=== PATIENT | male | born 1995 | race Caucasian/White ===

== ENCOUNTER → 2017-12-26 12:38 | Outpatient (CLI) | payer OTHER, SELFPAY ==
[2017-12-26 14:26] LABS: Basophils % 0.4 % (0.1-2.0); Eosinophils # 0.1 K/mm3 (0.0-0.4); Eosinophils % 1.8 % (0.1-12.0); Hematocrit 42.3 % (42.0-52.0); Hemoglobin 14.4 g/dL (14.1-18.0); Lymphocytes # 1.4 K/mm3 (0.7-4.5); Lymphocytes % 27.3 K/mm3 (10-50); Mean Corpuscular HGB Conc 34.2 g/dL (31.8-35.4); Mean Corpuscular Volume 93.8 fl (80-94); Mean Platelet Volume 7.8 fl (7.4-10.4); Monocytes # 0.3 K/mm3 (0.1-1.0); Monocytes % 5.1 % (1.7-9.3); Neutrophils # 3.4 K/mm3 (1.8-7.8); Neutrophils % 65.4 % (37.0-80.0); Platelet Count 178 K/mm3 (142-424); Red Blood Count 4.51 M/mm3 (4.60-6.20); Red Cell Distribution Width 15.2 % (11.5-17.5); White Blood Count 5.3 K/mm3 (4.8-10.8)
[2017-12-26 15:15] LABS: Alanine Aminotransferase 28 U/L (12-78); Albumin Level 4.7 gm/dL (3.4-5.0); Alkaline Phosphatase 83 U/L (46-116); Anion Gap 15.4 mEq/L (5-15); Aspartate Amino Transferase 14 U/L (15-37); Bilirubin,Direct 0.2 mg/dL (0.0-0.2); Bilirubin,Indirect 0.9 mg/dL (0.0-0.9); Bilirubin,Total 1.1 mg/dL (0.2-1.0); Blood Urea Nitrogen 5 mg/dL (7-18); Calcium 9.6 mg/dL (8.5-10.1); Carbon Dioxide 27 mmol/L (21.0-32.0); Chloride 103 mmol/L (98-107); Chol/HDL Ratio 2.6 (1-3.5); Cholesterol 100 mg/dL (140-200); Creatinine,Serum 0.78 mg/dL (0.70-1.30); Estimated Glomerular Filt Rate 122 ml/min (>60); Free Thyroxine Index 3.7 ug/dL (5.93-13.13); GFR (African American) 148 ML/MIN (>60); Glucose 90 mg/dL (74-106); HDL Cholesterol 38 mg/dL (27-67); LDL Cholesterol 47 mg/dL (0-130); Magnesium 1.9 mg/dL (1.4-2.2); Potassium 4.4 mmoL/L (3.5-5.1); Sodium 141 mmol/L (136-145); T4 (Thyroxine) 10.6 ug/dl (4.7-13.3); Thyroid Stimulating Hormone 1.45 uIU/ml (0.358-3.740); Total Protein,Serum 7.8 gm/dL (6.4-8.2); Triglycerides 77 mg/dL (30-200); Triiodothryronine (T3) Uptake 35 % (31-39); VLDL Cholesterol 15 mg/dL (0-40)
== END ==
PROVIDERS: PCP Family Medicine; Visit Provider Physician Assistant
DX: R07.9 Chest pain, unspecified (principal); R00.2 Palpitations; I47.1 Supraventricular tachycardia; F17.200 Nicotine dependence, unspecified, uncomplicated; I10 Essential (primary) hypertension
CPT/HCPCS: 36415; 80048; 80061; 80076; 83735; 84436; 84443; 84479; 85025

== ENCOUNTER → 2019-11-13 12:18 | Outpatient (CLI) | payer MEDICAID, SELFPAY | PROVIDERS: PCP Family Medicine; Visit Provider Internal Medicine Cardiovascular Disease | DX: R55 Syncope and collapse (principal); R00.2 Palpitations; Z86.79 Personal history of other diseases of the circulatory system | CPT/HCPCS: 93270 ==

== ENCOUNTER → 2019-11-19 13:27 | Outpatient (CLI) | payer MEDICAID, SELFPAY ==
--- NOTE | 2019-11-19 13:28 | CA_ITS ---
APPROVED REPORT EXAM: Comprehensive 2D, Doppler, and color-flow Echocardiogram [employer] Adviser: Adela Dawn CRT Ht: 5 ft 10 in Wt: 195lbs BSA: 2.07 BP: 127/75 mmHg Indications: + ASD/PFO //14, MVP, PALP, NEAR SYNCOPE, SVT Echo Enhancing Agent Indication: Rule out Shunt Agent(s) / Amount(s) Used: Agitated Saline 15 cc Comments: B/S X 3. 2D Dimensions LVOT 1.97 cm (M/F) 1.5-2.5 M-Mode Dimensions RVDd 2.76 cm (0.9-2.6) LVDd 4.77 cm (3.5-5.7) LVDs 3.14 cm (3.5-5.7) IVSd 1.31 cm (0.6-1.1) PWd 0.96 cm (0.6-1.1) EF (Teich) 63.10% FS 34.20% EDV (Teich) 106.00 mL ESV (Teich) 39.10 mL LV Diastology E/A Ratio 1.31 Mitral Valve MV A Velocity 46.00 (40-130 cm/s) Left Ventricle Left atrium is normal size, left ventricle is normal size, there is no concentric left ventricular hypertrophy, visually estimated ejection fraction 55% with no regional wall motion abnormality, diastolic parameters are within normal range. Right Ventricle Right atrium and right ventricle are normal size and contractility. Atria Intra-atrial septum is intact, there is no flow across the interatrial septum, agitated saline contrast study fails to identify intracardiac shunt. Aortic Valve Aortic valve is grossly normal, there is no aortic stenosis or aortic insufficiency. Mitral Valve Mitral valve is grossly normal, there is no obvious mitral valve prolapse, there is trace mitral regurgitation. Tricuspid Valve Tricuspid valve is grossly normal, there is trace tricuspid regurgitation. Pulmonic Valve Pulmonic valve is poorly visualized. Great Vessels Aortic root is normal size. Pericardium No significant pericardial effusion noted. Conclusion 1. Normal left ventricular size, preserved left ventricular systolic function, visually estimated ejection fraction 55% with no regional wall motion abnormality, diastolic parameters are within normal range. 2. Interatrial septum is intact, agitated saline contrast study fails to identify intracardiac shunt. 3. This study did not confirm the findings of mitral valve prolapse or intracardiac shunt. Electronically signed by : Del Rivas, 11/20/2019 11:18:01
== END ==
PROVIDERS: PCP Family Medicine; Visit Provider Internal Medicine Cardiovascular Disease
DX: R00.2 Palpitations (principal); R55 Syncope and collapse; Z86.79 Personal history of other diseases of the circulatory system
CPT/HCPCS: 93306

== ENCOUNTER 2020-12-24 07:10 | Emergency (ER) | payer BC, OTHER, SELFPAY ==
[2020-12-24 07:11] VITALS: BP 152/81; PULSE 96; RESP 16; TEMP 37.4; O2SAT 98; BMI 31.1
[2020-12-24 07:25] VITALS: BMI 31.1
[2020-12-24 07:32] LABS: Coronavirus 19, PCR Not Detected (NotDetected); Influenza A, PCR Not Detected (NotDetected); Influenza B, PCR Not Detected (NotDetected)
[2020-12-24 07:41] LABS: Strep Scrn Group A (Rapid) Positive (Negative)
[2020-12-24 07:59] LABS: Basophils % 0.3 % (0.1-2.0); Eosinophils # 0.1 K/mm3 (0.0-0.4); Eosinophils % 2.4 % (0.1-12.0); Hematocrit 42.3 % (42.0-52.0); Hemoglobin 14.6 g/dL (14.1-18.0); Lymphocytes # 0.8 K/mm3 (0.7-4.5); Lymphocytes % 15.5 % (10-50); Mean Corpuscular HGB Conc 34.5 g/dL (31.8-35.4); Mean Corpuscular Hemoglobin 32.4 pg (27.0-31.2); Mean Platelet Volume 8.4 fl (7.4-10.4); Monocytes # 0.5 K/mm3 (0.1-1.0); Monocytes % 9.3 % (1.7-9.3); Neutrophils # 3.9 K/mm3 (1.8-7.8); Neutrophils % 72.4 % (37.0-80.0); Platelet Count 140 K/mm3 (142-424); Red Cell Distribution Width 14.9 % (11.5-17.5); White Blood Count 5.4 K/mm3 (4.8-10.8)
[2020-12-24 08:05] LABS: Alanine Aminotransferase 29 U/L (12-78); Albumin Level 4.4 g/dl (3.5-5.0); Albumin/Globulin Ratio 1.5 (1.1-1.8); Alkaline Phosphatase 61 U/L (38-126); Anion Gap 15.5 mEq/L (5-15); Aspartate Amino Transferase 23 U/L (17-59); Blood Urea Nitrogen 8 mg/dl (9-20); Calcium 9.3 mg/dl (8.4-10.2); Carbon Dioxide 26 mmol/L (22.0-30.0); Chloride 101 mmol/L (98-107); Creatinine Clearance Estimated 182 mL/min (50-200); Estimated Glomerular Filt Rate 116 ml/min (>60); GFR (African American) 140 ML/MIN (>60); Glucose 102 mg/dl (74-100); Potassium 4.5 mmoL/L (3.5-5.1); Sodium 138 mmol/L (136-145); Total Protein,Serum 7.4 g/dl (6.3-8.2)
--- NOTE | 2020-12-24 08:07 | HMH.EDGENADL ---
ED Disposition Clinical Impression: Strep pharyngitis Disposition: Home, Self-Care Condition on Discharge: Good Instructions: DI for Strep Throat Additional Instructions: Tylenol or ibuprofen for pain or fever. Rest and drink plenty of fluids. Amoxicillin as prescribed. Prescriptions: Amoxicillin [Amoxicillin 500mg Cap] 500 mg PO TID #30 cap Transmission Status: Pending to [facility] Referrals: Provider,Referral, MD [Primary Care Provider] - Forms: Work/School Release - Critical Care Critical Care Time: No Attestation: On 12/24/20, the high probability of a clinically significant, sudden or life threatening deterioration of the following system(s) required my full and direct attention, intervention and personal management. The time I documented below is in addition to time spent performing reported procedures but includes the following listed in this critical care notation. Medical Decision Making - Tyshawn Inquiry Pt receiving controlled substance: No Vital Signs: 12/24/20 07:11 Temperature 99.3 F Temperature Source Oral Pulse Rate [Radial] 96 H Respiratory Rate 16 Blood Pressure [Right Arm] 152/81 H Blood Pressure Mean [Right Arm] 104 Blood Pressure Source [Right Arm] Manual Cuff/ Palpation Blood Pressure Position [Right Arm] Sitting 02 Sat by Pulse Oximetry 98 Oxygen Delivery Method Room Air - Lab Data Lab Results 12/24/20 07:20: Group A Strep Rapid Positive A 12/24/20 07:20: SARS-CoV-2 (PCR) Not detected, Influenza A Untype (PCR) Not detected, Influenza Type B (PCR) Not detected 12/24/20 07:50: WBC 5.4, RBC 4.50 L, Hgb 14.6, Hct 42.3, MCV 94.0, MCH 32.4 H, MCHC 34.5, RDW 14.9, Plt Count 140 L, MPV 8.4, Neut % (Auto) 72.4, Lymph % (Auto) 15.5, [place] % (Auto) 9.3, Eos % (Auto) 2.4, Baso % (Auto) 0.3, Neut # (Auto) 3.9, Lymph # (Auto) 0.8, [place] # (Auto) 0.5, Eos # (Auto) 0.1, Baso # (Auto) 0.0 12/24/20 07:50: Sodium 138, Potassium 4.5, Chloride 101, Carbon Dioxide 26, Anion Gap 15.5 H, BUN 8 L, Creatinine 0.80, Estimated Creat Clear 182, Estimated GFR 116, Est GFR ( Amer) 140, Glucose 102 H, Calcium 9.3, Total Bilirubin 1.0, AST 23, ALT 29, Alkaline Phosphatase 61, Total Protein 7.4, Albumin 4.4, Globulin 3.0, Albumin/Globulin Ratio 1.5 Result diagrams: 12/24/20 07:50 12/24/20 07:50 Orders (Tests/Meds): ED MEDICATIONS Generic Name Dose Route Start Last Admin Trade Name Freq PRN Reason Stop Dose Admin Sodium Chloride 1,000 mls @ 999 mls/hr 12/24/20 07:45 12/24/20 07:45 Sod Chlor 0.9% 1000ml Bag IV 12/24/20 08:45 999 mls/hr .Q1H1M JULIO C Administration Ketorolac Tromethamine 30 mg 12/24/20 08:11 Ketorolac 30mg/Ml Vial IV 12/24/20 08:12 ONCE ONE Discontinued Medications Generic Name Dose Route Start Last Admin Trade Name Freq PRN Reason Stop Dose Admin Methylprednisolone Sodium Succinate 125 mg 12/24/20 07:44 12/24/20 07:45 Methylprednisolone Sod Succ 125mg Vial IV 12/24/20 07:45 125 mg ONCE ONE Administration ORDERS Category Date Time Status C-Reactive Protein Stat Lab 12/24/20 07:50 Results Complete Blood Count Auto Diff Stat Lab 12/24/20 07:50 Results Comprehensive Metabolic Panel Stat Lab 12/24/20 07:50 Results ESR [Erythrocyte Sedimentation Rate] Stat Lab 12/24/20 07:50 Results General Adult HPI - General Chief complaint: Headache Stated complaint: sore throat, headache Time Seen by Provider: 12/24/20 08:08 Mode of Arrival: Ambulatory Limitations: No Limitations Description of Symptoms (Recalled from ER Triage Doc. by RN): to ed per pvt car states woke up this am with swollen lymph nodes in neck with pain on my way to work I almost passed out from the pain and c/o headache. denies fever, cough, sob, runny nose. - History of Present Illness HPI narrative: Woke up this morning with headache and swollen lymph nodes in his neck. No cough or runny nose. - Related Data Home Medications Medic
[2020-12-24 08:10] LABS: C-Reactive Protein 5.2 mg/L (0-4)
[2020-12-24 08:19] LABS: Erythrocyte Sedimentation Rate 16 mm/hr (0-15)
[2020-12-24 08:46] VITALS: BP 145/78; PULSE 90; RESP 16; TEMP 37.2; O2SAT 98
== END 2020-12-24 08:48 | disposition home or self-care (01) ==
PROVIDERS: Emergency Medicine; Emergency Provider Emergency Medicine
DX: J02.0 Streptococcal pharyngitis (principal); Z20.822 Contact with and (suspected) exposure to COVID-19; I47.1 Supraventricular tachycardia
CPT/HCPCS: 80053; 85025; 85651; 86140; 87430; 96365; 96375; 99283; U0003

== ENCOUNTER 2020-12-26 20:26 | Emergency (ER) | payer BC, OTHER, SELFPAY ==
[2020-12-26 20:32] VITALS: PULSE 106; RESP 16; TEMP 37.1; O2SAT 96; BMI 31.1
--- NOTE | 2020-12-26 20:40 | HMH.EDUTC ---
[facility] [place] Disposition Clinical Impression: Strep pharyngitis, Fever Disposition: Home, Self-Care Condition on Discharge: Good Instructions: DI for Strep Throat Additional Instructions: COVID19 test pending. Tylenol and Motrin as needed. Plenty of fluids. Prescriptions: Cefdinir [Omnicef 300mg Capsule] 300 mg PO BID #20 cap Transmission Status: Pending to [facility] Referrals: Provider,Referral, [Primary Care Provider] - Forms: Work/School Release Time of Disposition: 20:49 Medical Decision Making - Tyshawn Inquiry Pt receiving controlled substance: No Vital Signs: 12/26/20 20:32 Temperature 98.8 F Temperature Source Oral Pulse Rate [Left] 106 H Respiratory Rate 16 02 Sat by Pulse Oximetry 96 - Lab Data Lab results reviewed: Yes: I reviewed the patient's lab results. Orders (Tests/Meds): ORDERS Category Date Time Status Covid-19 Nasal PCR ([facility]) Routine Lab 12/26/20 20:39 Ordered [facility] HPI - General Stated complaint: covid test Time Seen by Provider: 12/26/20 20:40 Mode of Arrival: Ambulatory Source of Information: Patient Limitations: No Limitations Description of Symptoms (Recalled from Triage Doc. by RN): pt c/o [place], fever and swollen lymph nodes. HEENT Symptoms (Recalled from RN notes): Yes ([place] and swollen lymph nodes) Resp Symptoms (Recalled from RN notes): No Skin Symptoms (Recalled from RN notes): No MS Symptoms (Recalled from RN notes): No Functional Status (Recalled from RN notes): fever - History of Present Illness Provider Complaint: Patient diagnosed with strep 2 days ago. Taking Amoxil. Still running fevers up to 103, chills, body aches, sore throat and swollen glands. No vomiting or diarrhea. Onset (ago): day(s) (2) Relieving factors: none Exacerbating factors: none Associated symptoms: fever/chills, malaise Treatments prior to arrival: NSAID - Related Data Home Medications Medication Instructions Recorded Confirmed aspirin 81 mg tablet,delayed 81 mg PO DAILY 05/11/20 12/24/20 release Propranolol HCl [Inderal 20mg See Rx Instructions .ROUTE .COMPLEX 12/24/20 12/24/20 tablet] Previous Rx's Medication Instructions Recorded Amoxicillin [Amoxicillin 500mg 500 mg PO TID #30 cap 12/24/20 Cap] Cefdinir [Omnicef 300mg Capsule] 300 mg PO BID #20 cap 12/26/20 Allergies Allergy/AdvReac Type Severity Reaction Status Date / Time No Known Allergies Allergy Verified 09/02/20 13:03 - Worker's Comp Is this a Worker's Comp case?: No [facility] History - Hepatitis A Screen Drug use history?: No High risk sexual behaviors?: No History of sexually transmitted infection?: No Currently employed?: No Childcare worker?: No Do you have indoor plumbing?: Yes Do you have electricity?: Yes Attestation statement:: This patient has been screened for Hepatitis A risk factors. I have reviewed the patient's past medical history: Yes Medical History: Reports:: Supraventricular Tachycardia Denies:: Cancer, Diabetes Mellitus Type 1, Diabetes Mellitus Type 2, MRSA Laterality Cases: Bilateral: Myringotomy (Ear Tubes), Tonsillectomy Other Surgeries: Yes: Plastic Surgery (left ear ) Amputation: No Fractures: No - Social History Smoking Status: Never smoker Tobacco Type: smokeless tobacco # Packs/Day (cigarettes): 0 Alcohol Intake: never Alcohol Intake Frequency:: other Occupational Status: employed Housing: house Family Hx:: Coronary Artery Disease ROS Obtained: Yes All systems reviewed & no additional complaints - Constitutional Constitutional: Reports body ache, Reports chills, Reports fever(s), Reports headache(s), Reports malaise - ENT Ears, Nose, Mouth, and Throat: Reports sore throat Physical Exam - General General appearance: alert, in no apparent distress - Head Head exam: atraumatic, normocephalic - Eye Eye exam: Present: PERRL - ENT ENT exam: Present: TM's normal bilaterally - Expanded ENT Exam Throat exa
[2020-12-26 20:47] LABS: UTC Strep Screen (Rapid) Negative (Negative)
[2020-12-26 20:48] VITALS: BP 152/84; PULSE 101; RESP 18; TEMP 37.1
--- NOTE | 2020-12-27 14:20 | PC.NURSE ---
NOTIFIED PT OF POSITIVE COVID RESULTS
== END 2020-12-26 20:53 | disposition home or self-care (01) ==
PROVIDERS: Emergency Provider Physician Assistant
DX: J02.0 Streptococcal pharyngitis (principal); U07.1 COVID-19; I47.1 Supraventricular tachycardia
CPT/HCPCS: 87880; 99203; C9803; G0463; U0003; U0005

== ENCOUNTER → 2021-05-16 11:01 | Outpatient (CLI) | payer OTHER, SELFPAY ==
[2021-05-17 06:38] LABS: Covid-19 Nasal PCR Sendout Lex POSITIVE
== END ==
PROVIDERS: Visit Provider Nurse Practitioner
DX: U07.1 COVID-19 (principal)
CPT/HCPCS: C9803; U0004; U0005

== ENCOUNTER 2021-10-07 11:30 | Emergency (ER) | payer OTHER, SELFPAY ==
[2021-10-07 12:05] VITALS: BP 147/92; PULSE 70; RESP 18; TEMP 36.9; O2SAT 100; BMI 31.0
--- NOTE | 2021-10-07 12:19 | HMH.EDUTC ---
[facility] [place] Clinical Impression: Dental abscess Disposition: Home, Self-Care Condition on Discharge: Good Instructions: Tooth Abscess, Ibuprofen, Amoxicillin and Clavulanic Acid Additional Instructions: Take medication as prescribed Follow up with your Family Doctor if no improvement or any worsening of symptoms Use dental balls as instructed in the [facility] Make sure to ralph and make appointment with Dentist Return if needed Straight to ER if any life threatening symptoms Prescriptions: Amoxicillin/Potassium Clav [Amox-Clav 875-125 mg Tablet] 1 tab PO BID #20 tab Transmission Status: Pending to [facility] Ibuprofen [Ibuprofen 800mg Tablet] 800 mg PO TIDP PRN #20 tab PRN Reason: Moderate Pain Transmission Status: Pending to [facility] Referrals: Petar Sun APRN [Primary Care Provider] - As needed Forms: Work/School Release Time of Disposition: 12:27 Medical Decision Making - Tyshawn Inquiry Pt receiving controlled substance: No Tyshawn was queried for this patient: No Vital Signs: 10/07/21 12:05 Temperature 98.5 F Temperature Source Oral Pulse Rate [Right Brachial] 70 Respiratory Rate 18 Blood Pressure [Right Arm] 147/92 H Blood Pressure Mean [Right Arm] 110 Blood Pressure Source [Right Arm] Automatic Cuff Blood Pressure Position [Right Arm] Sitting 02 Sat by Pulse Oximetry 100 Oxygen Delivery Method Room Air Orders (Tests/Meds): ED MEDICATIONS Discontinued Medications Generic Name Dose Route Start Last Admin Trade Name Freq PRN Reason Stop Dose Admin Benzocaine/Butamben/Tetracaine HCl 1 gm 10/07/21 12:17 10/07/21 12:17 Tetracaine/Benzocaine/Butamben 56 Gm [place] TP 10/07/21 12:18 1 gm ONCE ONE Administration Benzocaine/Butamben/Tetracaine HCl 1 gm 10/07/21 12:22 10/07/21 12:27 Tetracaine/Benzocaine/Butamben 56 Gm [place] TP 10/07/21 12:23 Not Given ONCE ONE Lidocaine HCl 15 ml 10/07/21 12:17 10/07/21 12:18 Lidocaine 2% Viscous Giuliana 15ml Udc PO 10/07/21 12:18 15 ml ONCE ONE Administration Lidocaine HCl 15 ml 10/07/21 12:22 10/07/21 12:27 Lidocaine 2% Viscous Giuliana 15ml Udc PO 10/07/21 12:23 Not Given ONCE ONE [facility] [place]PI - General Stated complaint: Mouth pain Time Seen by Provider: 10/07/21 12:20 Mode of Arrival: Ambulatory Source of Information: Patient Limitations: No Limitations Description of Symptoms (Recalled from Triage Doc. by RN): PATIENT C/O TOOTHACHE TO RIGHT SIDE OF MOUTH. HE STATES HIS FACE FEELS SWOLLEN HEENT Symptoms (Recalled from RN notes): Yes Resp Symptoms (Recalled from RN notes): No Skin Symptoms (Recalled from RN notes): No MS Symptoms (Recalled from RN notes): No Functional Status (Recalled from RN notes): WNL - History of Present Illness Provider Complaint: Patient statse that he has several broken teeth in the front of his mouth and he has been having pain and swelling in his gums States that feels like he may have an infection in his teeth so he came in to get checked - Related Data Previous Rx's Medication Instructions Recorded propranolol 20 mg tablet 20 mg PO BID #60 tab 06/03/21 Amoxicillin/Potassium Clav 1 tab PO BID #20 tab 10/07/21 [Amox-Clav 875-125 mg Tablet] Ibuprofen [Ibuprofen 800mg 800 mg PO TIDP PRN #20 tab 10/07/21 Tablet] Allergies Allergy/AdvReac Type Severity Reaction Status Date / Time No Known Allergies Allergy Verified 09/22/21 13:55 - Worker's Comp Is this a Worker's Comp case?: No [facility] History - Hepatitis A Screen Attestation statement:: This patient has been screened for Hepatitis A risk factors. I have reviewed the patient's past medical history: Yes Medical History: Reports:: Supraventricular Tachycardia Denies:: Cancer, Diabetes Mellitus Type 1, Diabetes Mellitus Type 2, MRSA Laterality Cases: Bilateral: Myringotomy (Ear Tubes), Tonsillectomy Other Surgeries: Yes: No Previous Surgery, Plastic Surgery Amputation: No Fract
[2021-10-07 12:27] VITALS: BP 147/92; PULSE 70; RESP 18; TEMP 36.9; O2SAT 100
== END 2021-10-07 12:31 | disposition home or self-care (01) ==
PROVIDERS: Emergency Provider Nurse Practitioner; PCP Nurse Practitioner Family
DX: K04.7 Periapical abscess without sinus (principal)
CPT/HCPCS: 99212; G0463

== ENCOUNTER 2022-03-29 15:13 | Emergency (ER) | payer OTHER, SELFPAY ==
--- NOTE | 2022-03-29 17:20 | EXP.UTC ---
Discharge Plan Disposition Patient Disposition: Home, Self-Care Condition: Good Prescriptions Prescriptions: New amoxicillin [amoxicillin] 875 mg tablet 875 mg PO Q12H Qty: 20 0RF methylprednisolone 4 mg Tablets,Dose Pack 4 mg PO DIRECTED Qty: 21 0RF vxqykkjtimhpifr-gayqwrnjj-WK [Bromfed DM] 2-30-10 mg/5 mL Syrup 5 ml PO Q6H PRN (Reason: Cough) Qty: 240 0RF oseltamivir [Tamiflu] 75 mg capsule 75 mg PO BID Qty: 10 0RF Discontinued propranolol 20 mg tablet 20 mg PO BID Qty: 60 5RF ibuprofen 800 MG tablet 800 mg PO TIDP PRN (Reason: Moderate Pain) Qty: 20 0RF amoxicillin-pot clavulanate 1 EACH tablet 1 tab PO BID Qty: 20 0RF Activity Restrictions/Add. Instructions Additional Instructions/Restrictions: Drink plenty of fluids. Take tylenol or ibuprofen for pain or fever. Take the medications as directed. Follow up with your regular doctor. GO TO THE ER FOR ANY WORSENING SYMPTOMS Clinical Impressions Clinical Impression: Acute viral syndrome, Bronchitis Stand Alone Forms Stand Alone Forms: Work/School Release Instructions Patient Instructions: Strep Throat, DI for Strep Throat Discharge ED Provider: Fitz Johnson [facility] General Stated complaint: sore throat,cough body aches Time Seen by Provider: 03/29/22 17:19 History of Present Illness Provider Complaint: He states that for the past 2 days he has had sore throat, chills, cough, and sinus congestion. Related Data Previous Rx's Medication Instructions Recorded amoxicillin 875 mg tablet 875 mg PO Q12H #20 tabs 03/29/22 hkrmkovqtzieela-smuskqrqxlwczpr-FE 5 ml PO Q6H PRN Cough #240 mL 03/29/22 2 mg-30 mg-10 mg/5 mL oral syrup (Bromfed DM) methylprednisolone 4 mg tablets in 4 mg PO DIRECTED #21 tabs 03/29/22 a dose pack oseltamivir 75 mg capsule (Tamiflu) 75 mg PO BID #10 caps 03/30/22 Allergies Allergy/AdvReac Type Severity Reaction Status Date / Time No Known Allergies Allergy Verified 03/29/22 17:29 [facility] Disclaimer: The information contained in this section may have been updated after the patient was seen, as this information can be updated by other users. Medical History Chest pain Palpitations Social History Smoking Status: Former smoker alcohol intake: never substance use type: denies use current occupational status: other Travel in the last 8 weeks: None housing: house ROS Obtained: Yes All systems reviewed & no additional complaints except as documented Constitutional Constitutional: Reports chills and Reports fever(s) Eyes Eyes: Denies eye discharge ENT Ears, Nose, Mouth, and Throat: Reports as per HPI Cardiovascular Cardiovascular: Denies chest pain Respiratory Respiratory: Denies chest congestion and Reports cough Gastrointestinal Gastrointestingal: Reports nausea; Denies abdominal pain, constipation, cramping, diarrhea or vomiting Musculoskeletal Musculoskeletal: Denies arthralgias Integumentary/Breasts Skin/Breast: Denies rash Neurologic Neurologic: Denies paresthesias Physical Exam General General appearance: alert and in no apparent distress Head Head exam: atraumatic, normocephalic and normal inspection Eye Eye exam: Present normal appearance, PERRL and EOMI ENT ENT exam: Present normal exam, normal oropharynx, mucous membranes moist, TM's normal bilaterally and normal external ear exam Neck Neck exam: Present normal inspection, full ROM and trachea midline; Absent meningismus or lymphadenopathy Chest Chest inspection: Present normal inspection and symmetric chest wall rise; Absent tenderness Respiratory Respiratory exam: Present normal lung sounds bilaterally; Absent respiratory distress Cardiovascular Cardiovascular exam: Present regular rate and normal rhythm; Absent JVD Abdominal Exam Abdominal exam: Present soft and no
[2022-03-29 17:26] VITALS: BP 129/87; PULSE 79; RESP 18; TEMP 37; O2SAT 98; BMI 31.1
[2022-03-29 17:38] LABS: UTC Strep Screen (Rapid) Positive (Negative)
[2022-03-29 17:48] VITALS: BP 129/87; PULSE 79; RESP 18; TEMP 37
== END 2022-03-29 17:48 | disposition home or self-care (01) ==
PROVIDERS: Emergency Provider Nurse Practitioner Family
DX: J40 Bronchitis, not specified as acute or chronic (principal); B34.9 Viral infection, unspecified
CPT/HCPCS: 87275; 87276; 87880; 99212; G0463

== ENCOUNTER 2023-06-18 17:41 | Outpatient (CLI) | payer OTHER, SELFPAY ==
[2023-06-18 17:34] LABS: Microscopic, Urine URINE MICROSCOPIC (MICROSCOPIC)
[2023-06-18 17:42] LABS: Basophils # 0.1 K/mm3 (0-0.2); Eosinophils # 0.3 K/mm3 (0.0-0.4); Eosinophils % 3.3 % (0.1-12.0); Hematocrit 49.6 % (42.0-52.0); Lymphocytes % 23.7 % (10-50); Mean Corpuscular HGB Conc 34.3 g/dL (31.8-35.4); Mean Corpuscular Hemoglobin 33.3 pg (27.0-31.2); Mean Corpuscular Volume 97.1 fl (80-94); Mean Platelet Volume 9.1 fl (7.4-10.4); Monocytes # 0.7 K/mm3 (0.1-1.0); Monocytes % 7.9 % (1.7-9.3); Neutrophils # 5.3 K/mm3 (1.8-7.8); Neutrophils % 64.1 % (37.0-80.0); Platelet Count 187 K/mm3 (142-424); Red Blood Count 5.11 M/mm3 (4.60-6.20); Red Cell Distribution Width 15.1 % (11.5-17.5); White Blood Count 8.3 K/mm3 (4.8-10.8)
[2023-06-18 17:47] LABS: Appearance,Urine CLEAR (Clear); Bilirubin,Urine Negative (Negative); Blood, Urine Negative (Negative); Color,Urine YELLOW (Yellow); Glucose,Urine (UA) Negative (Negative); Ketones,Urine Negative (Negative); Leukocyte Esterase,Urine Negative (Negative); Nitrate,Urine Negative (Negative); Protein,Urine Negative (Negative); Specific Gravity, Urine 1.025 (1.005-1.030); Urobilinogen,Urine 0.2 EU/dl (0.2)
[2023-06-18 18:06] LABS: WBC,Urine Occasional #/hpf (0-3)
[2023-06-18 18:30] LABS: Hemoglobin A1C 4.9 % (4.0-6.0)
[2023-06-18 18:39] LABS: Alanine Aminotransferase 63 U/L (12-78); Albumin Level 5.1 g/dl (3.5-5.0); Albumin/Globulin Ratio 1.7 (1.1-1.8); Alkaline Phosphatase 83 U/L (38-126); Aspartate Amino Transferase 36 U/L (17-59); Bilirubin,Total 1.3 mg/dl (0.2-1.3); Blood Urea Nitrogen 9 mg/dl (9-20); Calcium 9.8 mg/dl (8.4-10.2); Carbon Dioxide 25 mmol/L (22.0-30.0); Chloride 101 mmol/L (98-107); Chol/HDL Ratio 5.6 (1-3.5); Cholesterol 169 mg/dl (140-200); Estimated Glomerular Filt Rate 88 ml/min (>60); GFR (African American) 106 ML/MIN (>60); Glucose 89 mg/dl (74-100); HDL Cholesterol 30 mg/dl (40-60); Sodium 137 mmol/L (136-145); Total Protein,Serum 8.1 g/dl (6.3-8.2); Triglycerides 121 mg/dl (30-150); VLDL Cholesterol 24 mg/dL (0-40)
[2023-06-18 18:51] LABS: Direct LDL Cholesterol 109.81 mg/dL (100-129)
[2023-06-18 18:55] LABS: Free T4 (Free Thyroxine) 1.31 ng/dl (0.78-2.19)
[2023-06-18 18:56] LABS: 25-OH Vitamin D, Total 29.4 ng/mL (30-100)
[2023-06-18 19:10] LABS: Thyroid Stimulating Hormone 3.61 uIU/mL (0.465-4.68)
[2023-06-18 19:29] LABS: Vitamin B12 301 pg/mL (239-931)
[2023-06-20 14:43] LABS: HBsAg Screen Negative (Negative); HCV Ab Non Reactive (Non Reactive); Hep A Ab, IGM Negative (Negative); Hep B Core Ab, IgM Negative (Negative)
== END 2023-06-18 23:59 ==
LOC: LAB.DROPOF 17:41
PROVIDERS: PCP Nurse Practitioner Family; Visit Provider Nurse Practitioner Family
DX: I10 Essential (primary) hypertension (principal); L81.8 Other specified disorders of pigmentation; R53.83 Other fatigue; Z13.220 Encounter for screening for lipoid disorders; Z13.1 Encounter for screening for diabetes mellitus; Z79.899 Other long term (current) drug therapy; E55.9 Vitamin D deficiency, unspecified
CPT/HCPCS: 80053; 80061; 80074; 81001; 82306; 82607; 83036; 84439; 84443; 85025; 87086

== ENCOUNTER 2023-09-24 13:09 | Outpatient (CLI) | payer OTHER, SELFPAY ==
--- NOTE | 2023-09-24 | CA_ITS ---
FINAL REPORT CLINICAL HISTORY: Right arm pain and numbness after a neck/back injury FINDINGS: DUPLEX DOPPLER RIGHT UPPER EXTREMITY TECHNIQUE: Axial and color Doppler waveform evaluation of the right upper extremity was performed. FINDINGS: Right upper extremity Velocities cm/sec: SCA: 77.5 AxA Mid: 110.0 BrA Dist: 89.9 Rad: 64.9 Ul: 80.3 There are normal appearing waveforms throughout the upper extremity. There is no evidence of elevated velocities. The vessels are patent. IMPRESSION: No evidence of xxxx radial artery thrombosis or pseudoaneurysm. Reviewed, Interpreted and Dictated by Jan Avalos III, MD Transcribed by Malini Dent Authenticated and [facility]
== END 2023-09-24 23:59 | disposition home or self-care (01) ==
LOC: RT 13:10
PROVIDERS: PCP Nurse Practitioner Family; Visit Provider Physician Assistant
DX: M79.601 Pain in right arm (principal); R20.0 Anesthesia of skin
CPT/HCPCS: 93931

== ENCOUNTER 2024-12-30 11:23 | Outpatient (CLI) | payer OTHER, SELFPAY ==
--- OUTSIDE RECORDS SUMMARY | 2024-12-30 11:25 | XMS_ITS | Patient Health Record ---
[facility] Address [address] [place] [id number] Care Team Providers Care Director Of Loss Prevention Name Role Phone Len Humphreys Primary Care Provider [phone] Medications Medication SIG (Take, Route, Fr equency, Duration) Notes Start Date End Date Status Atenolol 25 MG 1 tab(s) orally as needed Active Problems Problem Type SNOMED Code ICD Code Onset Dates Problem Status W/U Status Risk Notes Problem SVT - Supraventricular tachycardia (1828401) SVT [Supraven tricular tachycard ia] (427.89) Active confirmed Plan Of Treatment No Information Insurance Providers Payer Name Payer Address Payer Phone Subscriber Number Group Number Insured Name Patient Relationship to Insured Coverage Start Date Coverage End Date [employer] [address] [place] [address] [id number] RUFINO DONIS Self - patient is the insured Medical (General) History Medical History History ICD Code allergies Surgical History Surgery Date(Month/Year) multiple ear surgeries T&A skin graft on ear drum cyst removed from bone left ear surgery- reconstruction 06/04/06 left ear surgery-reconstruction 11/02/08 Hospitalization History Reason Date(Month/Year) same as above [facility]-fell ice skating and cut chin [facility]-SVT, Possible PFO and Trivial MVP 06/17/13 to 06/18/13
--- NOTE | 2024-12-30 11:56 | ECG_ITS ---
APPROVED REPORT Exam: Resting ECG HR:72 bpm ECG Measurements Heart Rate 72 AXES SC 148 P 35 QRSd 92 QRS 1 QT 355 T 25 QTc 380 Conclusion SINUS RHYTHM NORMAL ECG UNCONFIRMED REPORT Electronically signed by : Ranjeet More MD 12/31/2024 08:24:57
[2024-12-31 12:17] VITALS: BMI 37.2
== END 2024-12-30 23:59 | disposition home or self-care (01) ==
LOC: PREOP 11:23
PROVIDERS: PCP Nurse Practitioner Family; Visit Provider Surgery
DX: Z01.810 Encounter for preprocedural cardiovascular examination (principal)
CPT/HCPCS: 93005

== ENCOUNTER 2025-01-01 06:02 | Day surgery (SDC) | payer OTHER, SELFPAY ==
[2024-12-30 12:13] LABS: Hematocrit 39.3 % (42.0-52.0); Hemoglobin 14.3 g/dL (14.1-18.0); Immature Granulocytes % 0.2 %; Mean Corpuscular HGB Conc 36.4 g/dL (31.8-35.4); Mean Corpuscular Hemoglobin 32.6 pg (27.0-31.2); Mean Corpuscular Volume 89.7 fl (80-94); Nucleated Red Blood Cells % 0 %; Platelet Count 192 K/mm3 (142-424); Red Blood Count 4.38 M/mm3 (4.60-6.20); Red Cell Distribution Width-SD 45.0 fL; White Blood Count 6.1 K/mm3 (4.8-10.8)
[2024-12-30 12:20] LABS: Chloride 102 mmol/L (98-107)
[2024-12-30 12:21] LABS: Potassium 4.7 mmoL/L (3.5-5.1); Sodium 137 mmol/L (136-145)
[2024-12-30 12:24] LABS: Anion Gap 14.7 mEq/L (5-15); Blood Urea Nitrogen 8 mg/dl (9-20); Calcium 9.5 mg/dl (8.4-10.2); Carbon Dioxide 25 mmol/L (22.0-30.0); Creatinine,Serum 0.80 mg/dl (0.66-1.25); Estimated Glomerular Filt Rate 113 ml/min (>60); GFR (African American) 136 ML/MIN (>60); Glucose 94 mg/dl (74-100)
[2024-12-30 12:54] VITALS: BMI 37.2
--- NOTE | 2024-12-30 12:55 | PC.NURSE ---
sent workload to henri montes in cardiology for cardiac clearance/risk assessment letter. awaiting reply
[2025-01-01] VITALS (11 sets, daily range): BP systolic 89–119; BP diastolic 54–77; PULSE 66–79; RESP 12–18; TEMP 36.1–36.2; O2SAT 94–99
[2025-01-01] MEDS: LACTATED RINGERS 1000ML 1,000 ML 25 ML IV (06:58)
[2025-01-01] MEDS: CLINDAMYCIN PHOSPHATE/D5W 900 MG/50 ML PIGGYBACK 50 MG (07:08)
--- NOTE | 2025-01-01 07:22 | EXP.ANES.CKL ---
[facility] Disclaimer: The information contained in this section may have been updated after the patient was seen, as this information can be updated by other users. Medical History Dental abscess Palpitations Surgical History History of placement of ear tubes History of adenoidectomy Status post middle ear reconstruction S/P surgery on nasal septum Family History Other Family history of diabetes mellitus type II Social History (Updated 01/01/25 @ 06:37 by Yasmin Bello RN) Smoking Status: Former smoker tobacco type: smokeless tobacco alcohol intake: current alcohol intake frequency: holidays/special occasions only substance use type: denies use current occupational status: employed Travel in the last 8 weeks?: None housing: house Have you lived/traveled outside [place] in past 30 days?: No Contact w/someone who lives/traveled outside US past 30 days?: No Exposure to someone with infectious disease in past 14 days?: No Do you have a fever (greater than 100.4 F or 38 C)?: No Have you tested positive for COVID-19?: No Exposed to someone with COVID-19 in past 14 days?: No Do you have a sore throat?: No Do you have a cough?: No Do you have any weakness?: No Are you experiencing any nausea/vomitting?: No Do you have any diarrhea?: No Are you experiencing any unusual bleeding?: No Do you have any muscle aches/pain?: No Do you have any abdominal pain?: No Are you experiencing loss of taste or smell?: No [facility] Anesthesia Checklist Patient Identification Patient Identification: Arm Band and Verbal (Name & ) Structural Data Admitted From: Home Planned Operative Procedure/s: I&D of groin Consent for Planned Operative Procedure(s) Verified: Yes Verified Documents: Surgical Consent NPO Status Verified Time NPO: 00:00 Chart Verification Results Verified: ECG Additional verifications Anesthesia Reactions: No Hx Blood Transfusions: No Blood Transfusion Reaction: No Airway Assessment Mallampati Score:: Class II C-Spine Mobility Assessed: Yes TMJ Mobility Assessed: Yes Dentition: Poor Dentition Neurological Assessment Level of Consciousness: Awake, Alert and Appropriate Hx Seizures: No Numbness or tingling in extremities: No Anesthesia Plan Anesthesia Risk discussed: Yes Anesthesia Plan: Verified ASA Class: II Anesthesia Type: General
[2025-01-01] MEDS: LIDOCAINE 1% 20ML MDV 20 ML (07:31)
--- NOTE | 2025-01-01 07:51 | P.OP_ITS ---
Date of procedure: 01/01/25 Pre-op Diagnosis:: Skin lesion, left groin Post-op Diagnosis:: Same Procedure performed:: Excision and ablation of skin lesion left groin (excisional length 3 cm) with simple closure Surgeon:: Jan Connell MD ASSISTANT PROGRAM DIRECTOR:: Stas Osuna Anesthesia: local and LMA Estimated blood loss (mL): 3 Operative findings:: Fleshy somewhat fungating lesion left groin crease with adjacent satellite lesion. Operative note:: Consent was obtained and patient was taken the operating room. Was positioned in supine position. Anesthesia was induced via LMA. He was positioned in somewhat of a frog-leg position. The area was prepped and draped in the standard surgical fashion. The largest lesion was somewhat fungating and elongated with narrow base. This was excised with a limited margins using sharp dissection. Lesion was excised from the underlying subcutaneous tissues with scissor dissection. Excisional length was 3 cm. Hemostasis was achieved with electrocautery. Local anesthetic was infiltrated. The incision was closed with a running 4-0 plain gut. There was an adjacent satellite lesion which was somewhat sessile measuring about 4 mm. This was excised in a limited fashion using electrocautery and then ablated with electrocautery. Antibiotic ointment and dressing was applied Condition: stable Disposition: PACU Complications:: None immediately.
--- NOTE | 2025-01-01 07:57 | EXP.ANES.I ---
[facility] Anesthesia Record Part I Anesthesia Record I Intake, IV Amount: 450 Hydration: Adequate Estimated blood loss (mL): 0 Urine output (mL): 0 Blood Products used (#): none Blood Pressure: 105/54 SaO2: 94 Pulse Rate: 66 Airway Patency: Patent Respiratory Rate: 12 Temperature: 97.0 F Patient is:: Oral/Nasal airway, Stable and Somnolent Stable to PACU at:: 07:55
--- NOTE | 2025-01-01 10:34 | P.PNANES_ITS ---
[facility] Anesthesia Record Part II Anesthesia Record Part II Discharge Time: 08:25 Destination: Surgical Day Care (OP Surgery) PACU nurse assessment reviewed?: Yes Patient Condition:: Good Anesthesia Complications:: None Swallowing reflex intact?: Yes Airway Patency: Patent Cyanosis?: No Blood Pressure: 94/59 SaO2: 95 Respiratory Rate: 16 Pulse Rate: 73 Temperature: 97 F Mental Status: Alert & Oriented Pain level:: 0 Nausea and/or vomitting:: None Intake, IV Amount: 0 Hydration: Adequate
== END 2025-01-01 09:11 | disposition home or self-care (01) ==
PROVIDERS: PCP Nurse Practitioner Family; Visit Provider Surgery
PROC: (CPT 11403; principal; 2025-01-01 07:30)
DX: A63.0 Anogenital (venereal) warts (principal); L98.8 Other specified disorders of the skin and subcutaneous tissue; Z88.0 Allergy status to penicillin
CPT/HCPCS: 11403; 36415; 80048; 85025; 96374; J0736; J1100; J2003; J2250; J2405; J2704; J2795; J3010; J7120